=== PATIENT | male | born 1995 | race African-American/Black ===

== ENCOUNTER → 2021-02-24 | Outpatient (CLI) | payer OTHER ==
[~2021-02-24] MED LIST: ISOVUE-370 76% 100ML VIAL As Ordered ONE
--- NOTE | 2021-02-24 10:45 | REP ---
INDICATION: LT SUPRACLAVICULAR LYMPHADENOPATHY, ANEMIA. COMPARISON: None. TECHNIQUE: 75 mL of intravenous Isovue 370 is administered and helical scanning is acquired. 3 mm axial images are re-formatted. Coronal and sagittal MPR images are generated. 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 Thyroid lobes are normal and symmetric. Parotid and submandibular glands are homogeneous and normal in size and symmetrical. The head is held tilted to the right in the scanning gantry. This renders the facial soft tissue somewhat asymmetrical. There is no evidence of suprahyoid or infrahyoid mass or adenopathy in the neck. No cyst is seen. The lung apices are clear. There is no evidence of left supraclavicular lymphadenopathy radiographically. A opaque BB is affixed to the skin in the left supraclavicular region. At this level there is a a superficial normal appearing lymph node measuring 9 x 6 x 3 mm. No enlarged node seen. There is a similar size and similar appearing lymph node on the right. No bony lesion is seen. IMPRESSION: Negative soft tissue neck CT study. No mass or adenopathy seen. <Electronically signed by Nahum Thomason > 02/24/21 104
== END ==
LOC: M RAD 09:25
PROVIDERS: ATTEND Physician Assistant
DX: R59.0 Localized enlarged lymph nodes (principal)
CPT/HCPCS: 70491; Q9967